=== PATIENT | male | born 1965 | race African-American/Black ===

== ENCOUNTER 2018-01-31 13:50 | Emergency (ER) | payer MEDICARE, OTHER ==
[~2018-01-31] VITALS: Ht 185.4 cm; Wt 108.8 kg
[2018-01-31 13:55] VITALS: TEMP 37; Ht 185.4 cm; Wt 108.8 kg
[2018-01-31] MEDS ORDERED: COLC0.6T54 PO (14:23)
--- NOTE | 2018-01-31 14:26 | EMERGENCY ROOM VISIT NOTE ---
ED Visit Note First contact with patient: 14:00 CHIEF COMPLAINT: Foot pain HISTORY OF PRESENT ILLNESS: This 52-year-old male patient, significant past medical history for gout, presents to the emergency department, ambulatory, complaining of swelling and pain in the right foot at rest and worse with weight bearing. The patient states his symptoms began 2 days ago, and are consistent with previous history and episodes of gout. The patient states he has not been taking any medications, and thought it would go away on its own. He states he was seen by his primary care provider in [place], and was given a prescription for some medication for gout, but did not get the prescription filled while in [place], and recently moved here. The patient rates the pain as sharp and 10/10. The pain began in the MTP joint of the first metatarsal and seems to have spread more proximal into the foot. The patient has had no relief of the pain. The patient is able to walk, but when he walks, he states "it feels like my foot is broken when I step". No numbness or weakness. No ankle pain. There are no lacerations of the foot. The patient is able to move their ankle without pain. No previous fracture to this foot. REVIEW OF SYSTEMS: GENERAL: A 6 system review of systems was completed with positives and pertinent negatives in the HPI. ALLERGIES: Methadone MEDICATIONS: Folate, diclofenac, zolpidem, aspirin, Eliquis, amlodipine, Wellbutrin, Ventolin, atorvastatin, gabapentin, Celexa, metformin, tizanidine, incruse ellipta, OxyContin PMH: Gout, stroke, ND, hemorrhoids, bipolar, schizophrenia, hypertension, diabetes SOCIAL HISTORY: The patient is moving to the area from [place]. He denies drug, alcohol, tobacco use. PHYSICAL EXAM: Vital Signs: Reviewed Nurse's notes, vital signs stable. GENERAL : This is a 52-year-old black male, in no acute distress, but appears in pain, well-developed, well-nourished. MUSCULOSKELATAL: There is no visual deformity of the right foot. There is mild erythema without ecchymosis. There is warmth. There is tenderness and swelling over the medial aspect of the right foot, over the MTP joint and first metatarsal. There is no tenderness over the lateral or medial malleolus. No tenderness of the tib/fib. The range of motion of the foot and toes is moderately limited secondary to pain. There is no tenderness over the plantar fascia. The skin is intact and there are no lacerations or puncture wounds. Dorsalis pedis pulse 2+. Capillary refill less than 2 seconds. EMERGENCY DEPARTMENT COURSE: I examined the patient. His symptoms are consistent with gout, and he does have a history of the same. I did offer labs and imaging, and the patient declined. I contacted the patient's pharmacy in [place] to determine what medication he was given previously for gout which helped. He was previously on colchicine, so he will be treated with the same medication at this time. Discharge instructions reviewed, and the patient was discharged home in good condition. I attest that I have personally reviewed the patient's current medication list. Blood Pressure Screening: Patient was found to have a slightly elevated blood pressure due to circumstances. I do not believe that the patient requires hypertension monitoring. Differential diagnosis includes gout, Lyme, arthritis, fracture, sprain, strain , contusion, malignancy, and others DIAGNOSIS: Gout . Current/Historical Medications Scheduled Colchicine (Colchicine), 0.6 MG PO BID Vital Signs Date Time Temp Pulse Resp B/P (MAP) Pulse Ox O2 Delivery O2 Flow Rate FiO2 01/31/18 14:52 95 18 149/93 97 01/31/18 13:55 37.0 95 18 149/93 97 Room Air Departure Information Impression Primary Impression: Gout Dispostion Home / Self-Care Condition GOOD Prescriptions Colchicine (Colchicine) 0.6 Mg Tab 0.6 MG PO BID, #12 TAB Take 2 tabs immediately, followed by 1 tab 1 hour later on day 1. Then, take 1 tab twice daily until resolution of gout. Prov: Cha Butt, ALVIN 01/31/18 Referrals No Doctor, Assigned (PCP) Patient Instructions ED Arthritis Gout, ED Diet Gout, My [facility] Additional Instructions You were seen in the emergency department today for a gout flareup. You were given a prescription for colchicine to be used as directed. Take 2 tablets immediately upon filling the prescription. One hour later, take 1 more tablet. Tomorrow, begin taking 1 tablet twice per day (12 hours) until resolution of symptoms. This medication may cause diarrhea and abdominal pain. Discontinued the use of the medication for any significant adverse effects or allergic reaction. Please do not take any other anti-inflammatory medications including diclofenac , ibuprofen, naproxen, Aleve, Advil, Motrin while taking colchicine. As discussed, in the future for gout flareups, you can start with naproxen which can be obtained [id number]. You can take 750 mg 1 on day 1. After that, you should follow with 500 mg twice daily until resolution of gout. Follow-up with primary care provider for further evaluation and treatment of your gout. Return to the emergency department for any further concerns. Problem Qualifiers Primary Impression: Gout Gout site: foot Gout etiology: unspecified cause Chronicity: acute Laterality: right Qualified Codes: M10.9 - Gout, unspecified
[2018-01-31 14:52] VITALS: BP 149/93; PULSE 95; O2SAT 97
== END 2018-01-31 14:53 | disposition home or self-care (01) ==
LOC: EEVIPCON 13:54 → C.EDB 13:54 → C.EDD 14:53
DX: M10.9 Gout, unspecified (principal); M79.671 Pain in right foot